=== PATIENT | male | born 2000 | race Two or more races ===

== ENCOUNTER 2019-09-13 07:37 | Emergency (ER) | payer MEDICAID, OTHER ==
[~2019-09-13] VITALS: Ht 177.8 cm; Wt 78.9 kg
[2019-09-13 07:55] VITALS: BP 128/78
== END 2019-09-13 09:02 | disposition home or self-care (01) ==
LOC: ER 07:40
DX: J06.9 Acute upper respiratory infection, unspecified (principal)
CPT/HCPCS: 71046